=== PATIENT | male | born 1990 | race Caucasian/White ===

== ENCOUNTER 2016-09-08 05:40 | Emergency (ER) | payer OTHER ==
[~2016-09-08] VITALS: Ht 185.4 cm; Wt 72.1 kg
[2016-09-08] MEDS ORDERED: METHYLPREDNISOLO4 M1 PO (06:06)
[2016-09-08] MEDS ORDERED: BENADRYL50 MG PO (07:50)
[2016-09-08] MEDS ORDERED: PEPCID40 MG PO (07:50)
[2016-09-08 08:45] VITALS: BP 103/66
== END 2016-09-08 09:17 | disposition home or self-care (01) ==
LOC: EME 05:40
DX: L50.0 Allergic urticaria (principal); T36.0X5A Adverse effect of penicillins, initial encounter; F17.200 Nicotine dependence, unspecified, uncomplicated
CPT/HCPCS: 99281; 99285; J1200; J2930; S0028